=== PATIENT | male | born 1990 | race Caucasian/White ===

== ENCOUNTER 2021-12-18 19:28 | Outpatient (CLI) | payer OTHER, SELFPAY ==
--- NOTE | 2021-12-18 19:30 | DI.RAD_ITS ---
Exam(s) XR THORACIC SPINE COMPLETE EXAM: XR THORACIC SPINE COMPLETE CLINICAL HISTORY: question disc herniation -eval vertebral alignment TECHNIQUE: COMPARISON: No exams were available for comparison FINDINGS: Three views were obtained. Alignment appears within normal limits. Intervertebral disc spaces are w ell maintained. No focal bony abnormality seen. IMPRESSION: RADIATION DOSE DELIVERED: Total DLP
--- NOTE | 2021-12-18 19:30 | DI.RAD_ITS ---
Exam(s) XR LUMBAR SPINE COMPLETE EXAM: XR LUMBAR SPINE COMPLETE CLINICAL HISTORY: evaulate vertebral alignement ? disc herniation TECHNIQUE: COMPARISON: No exams were available for comparison FINDINGS: Five views were obtained. There is a minimal left convex lumbar scoliosis. The SI joints appear wel l maintained. Intervertebral disc spaces are of normal height throughout. There are minimal hypertr ophic changes involving vertebral endplates at multiple levels. No evidence of spondylolysis or spon dylolisthesis. Minimal facet hypertrophic changes noted in the lower lumbar region. No fracture see n. IMPRESSION: No evidence of acute process. RADIATION DOSE DELIVERED: Total DLP
--- NOTE | 2021-12-18 20:47 | DI.VRAD_ITS ---
PROCEDURE INFORMATION: Exam: XR Lumbosacral Spine Exam date and time: 12/18/2021 7:43 PM Age: 31 years old Clinical indication: Other: Evaluate vertebral alignment, ? disc herniation, lbp TECHNIQUE: Imaging protocol: XR of the lumbosacral spine. Views: 4 or 5 views. COMPARISON: No relevant prior studies available. FINDINGS: Bones/joints: No acute fracture. No subluxation. There is narrowing of the L5-S1 disc space. Spina bifida occulta seen at the lumbosacral junction on the anterior view. Soft tissues: Unremarkable. IMPRESSION: No acute osseous abnormality. Dictated and Authenticated by: Monty Portillo MD. Ordering:VICKI Nunez MD
--- NOTE | 2021-12-18 20:48 | DI.VRAD_ITS ---
PROCEDURE INFORMATION: Exam: XR Thoracic Spine Exam date and time: 12/18/2021 7:43 PM Age: 31 years old Clinical indication: Other: ? Disc herniation, eval vertebral alignment, back pain TECHNIQUE: Imaging protocol: XR of the thoracic spine. Views: 3 views. COMPARISON: No relevant prior studies available. FINDINGS: Bones/joints: No acute fracture. No subluxation. Soft tissues: Unremarkable. IMPRESSION: No acute osseous abnormality. Dictated and Authenticated by: Monty Portillo MD. Ordering:VICKI Nunez MD
== END 2021-12-18 19:48 ==
PROVIDERS: Visit Provider Nurse Practitioner Family
DX: M54.6 Pain in thoracic spine (principal); M54.50 Low back pain, unspecified
CPT/HCPCS: 72072; 72110

== ENCOUNTER 2025-03-26 14:09 | Outpatient (CLI) | payer OTHER, SELFPAY ==
--- NOTE | 2025-03-26 11:30 | DI.RAD_ITS ---
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 TECHNIQUE: 2D digital imaging was performed. COMPARISON: No exams were available for comparison FINDINGS: 3 views No evidence of fracture or diastasis of the Lisfranc joint. Great toe metatarsophalangeal joint appe ars unremarkable. The more lateral the 2 sesamoid bones subjacent to the great toe metatarsal head i s noted to be bipartite. No pes planus. No inferior calcaneal spur nor enthesophytes. Bone density normal. No osseous lesions evident. No soft tissue calcifications. IMPRESSION: No acute osseous findings in the left foot. DATA REPOSITORY: RADIATION DOSE DELIVERED:
== END 2025-03-26 14:29 ==
LOC: DI 14:16
PROVIDERS: Visit Provider Physician Assistant
DX: M72.2 Plantar fascial fibromatosis (principal)
CPT/HCPCS: 73630